=== PATIENT | male | born 1990 | race Caucasian/White ===

== ENCOUNTER 2019-08-17 13:16 | Outpatient (CLI) | payer OTHER, SELFPAY ==
--- NOTE | 2019-08-17 13:00 | CT_ITS ---
WS: [id number] CT HEAD NONCONTRAST HISTORY: head injury TECHNIQUE: Contiguous axial imaging performed through the brain in 2.5 mm imaging. Bone and soft tiss ue windows. All CT scans at [facility] use at least one of these dose optimization techniq ues: automated exposure control; mA and/or kV adjustment per patient size (includes targeted exams wh ere dose is matched to clinical indication); or iterative reconstruction. DLP: 1058.18 mGycm COMPARISON: None available. No acute intracranial hemorrhage, midline shift or mass effect. No atrophy or prior infarcts or herniation. Ventricles: Normal size with no hydrocephalus. Paranasal sinuses: As visualized are clear. Mastoid air cells: Well pneumatized. Calvarium and scalp: Skull is intact with no soft tissue edema or swelling. CT/CT head wo con* [id number] IMPRESSION: Negative head CT.
== END 2019-08-17 13:17 | disposition home or self-care (01) ==
LOC: RADWPI 13:22
PROVIDERS: PCP Nurse Practitioner Family; Visit Provider Nurse Practitioner Family
DX: S09.90XA Unspecified injury of head, initial encounter (principal); X58.XXXA Exposure to other specified factors, initial encounter; R11.0 Nausea; R42 Dizziness and giddiness
CPT/HCPCS: 70450